=== PATIENT | male | born 1935 | race Caucasian/White ===

== ENCOUNTER 2016-06-21 15:11 | Observation (INO) | payer BC, MEDICARE, OTHER ==
--- NOTE | ~2016-06-21 | HP ---
History And Physical [place] [id number] [facility] [place] [address] NAME: ARIELLA ARNOLD : 37 STATUS : ADM Rachael PAT#: [id number] AGE: 81 ADM/REG DATE : 06/21/16 MR#: [id number] REPORT SERV DATE: 06/21/16 DICTATED BY: FEDERICO MARQUEZ DATE: 06/21/16 REPORT STATUS : Draft TRANSCRIBED BY: MODL DATE: 06/21/16 DATE OF ADMISSION: 06/21/2016 POINT OF ENTRY: [facility] Emergency Department. CHIEF COMPLAINT: Weakness and difficulties walking. HISTORY OF PRESENT ILLNESS: Mr. Arnold is a 81-year-old gentleman with a history of coronary artery disease with prior coronary artery bypass grafting as well as hypertension, hyperlipidemia, zgk-odqfqzh-vvednywjx diabetes mellitus type 2, as well as chronic systolic congestive heart failure, most recent ejection fraction being 50% who presents to the emergency department today with reports of weakness, dizziness, and difficulties walking. The patient states he was recently admitted to [facility] in May for a fall down some steps. He denies any fractures or dislocations, but was admitted there for four days for unclear reasons. The patient states that he was having some difficulties walking even prior to that fall, but since then has had continued difficulties walking and feeling unsteady on his feet. He primarily presents to the emergency department today for reports of feeling tremulous, weak, as well as dizzy with ambulation. He denies any recent fevers, night sweats, chills, chest pain, palpitations, shortness of breath, cough, sputum production, abdominal pain, nausea, vomiting, diarrhea, constipation, dysuria, lower extremity edema, melena, hematochezia, hemoptysis, or hematemesis. REVIEW OF SYSTEMS: Comprehensive review of systems, otherwise, negative unless listed in the history of present illness. Initial evaluation in the emergency department is notable for a blood pressure initially of 99/53, with small amount of IV fluid, it improved to one teens over 60s. Labs notable for a creatinine 1.31 as well as positive urinary tract infection. He was noted to be anemic with hemoglobin of 9.6 with most recent comparison being 12.6, a few months prior, but the occult stool was negative. He was subsequently admitted to the Hospital Service for further evaluation and management. PREVIOUS MEDICAL HISTORY: 1. Coronary artery disease with prior coronary artery bypass grafting. 2. COPD, not on home oxygen. 3. Hypertension. 4. Hyperlipidemia. 5. Gout. 6. Cfw-etkhjqq-hbfutvvar diabetes mellitus type 2. 7. Atrial fibrillation, on Coumadin. 8. Chronic systolic congestive heart failure, ejection fraction 50%. 9. BPH. 10.Osteoarthritis. History And Physical [address] [place]. [address] NAME: ARIELLA ARNOLD : 37 STATUS : ADM Rachael PAT#: [id number] AGE: 81 ADM/REG DATE : 06/21/16 MR#: [id number] REPORT SERV DATE: 06/21/16 DICTATED BY: FEDERICO MARQUEZ DATE: 06/21/16 REPORT STATUS : Draft TRANSCRIBED BY: JUANJO DATE: 06/21/16 PAST SURGICAL HISTORY: 1. Coronary artery bypass grafting. 2. Cataract surgery. 3. Right total hip. 4. Cholecystectomy. 5. Appendectomy of the left wrist. 6. Aortic valve replacement for mitral valve repair. 7. Prostate surgery. ALLERGIES: NO KNOWN DRUG ALLERGIES. HOME MEDICATIONS: Home medications are pending at the time of dictation. SOCIAL HISTORY: He is a former smoker. Denies any alcohol. Denies illicits. He is , currently lives with his . FAMILY MEDICAL HISTORY: Mother with history of stroke. Father with COPD, long-term smoker. Siblings also with stroke. LABS AND IMAGIN. White count is 7.3, hemoglobin is 9.6, hematocrit is 29.0, and platelet count is 191. 2. Sodium is 139, potassium 3.5, chloride 101, carbon dioxide 29, BUN 17, creatinine 1.31, glucose is 132, calcium is 8.5, protein is 6.3, albumin is 3.4, bilirubin is 0.7, ALT is 10, AST 14, and alkaline phosphatase is 91. 3. Lactic acid is 1.5. 4. Urinalysis: Specific gravity is 1.017, trace leukocyte esterase, and 17 white blood cells per high-powered field. 5. Chest x-ray per my review shows no acute cardiopulmonary abnormality, does show some hyperinflation consistent with COPD. 6. [facility] review of [facility], he has echocardiogram from January 2016 shows ejection fraction of 50% as well as some mild diastolic dysfunction as well as some moderate RV systolic dysfunction. PHYSICAL EXAMINATION: VITAL SIGNS: Temperature is 98.2 degrees Fahrenheit; pulse is 89; respirations 16; saturating 97% on room air; blood pressure 99/53, on recheck, blood pressure is now 113/67; and pulse is 71. GENERAL: The patient is awake, alert, in no acute distress, and resting comfortably I bed. He is a well-developed, well-nourished, elderly male. HEENT: Atraumatic and normocephalic. Moist mucous membranes. Pupils are equal, round, and reactive to light and accommodation. Extraocular eye movements are intact. No scleral icterus. NECK: No jugular venous distention. No carotid bruits. CARDIAC: Irregularly irregular rate and rhythm with a 2/6 systolic murmur, heard best over the left lower sternal border. LUNGS: Clear to auscultation bilaterally. No wheezes, rhonchi, or crackles. History And Physical [address] [address] NAME: ARIELLA ARNOLD : 37 STATUS : ADM Rachael PAT#: [id number] AGE: 81 ADM/REG DATE : 06/21/16 MR#: [id number] REPORT SERV DATE: 06/21/16 DICTATED BY: FEDERICO MARQUEZ DATE: 06/21/16 REPORT STATUS : Draft TRANSCRIBED BY: JUANJO DATE: 06/21/16 ABDOMEN: Soft, nontender, and nondistended. Good bowel sounds. No rebound, guarding, or rigidity. EXTREMITIES: Warm and well perfused. No cyanosis, clubbing, or edema. SKIN: Warm and dry. PSYCH: Affect appropriate. NEURO: Alert and oriented x3. Cranial nerves II through XII are grossly intact. Speech is normal. Gait not assessed. Does have approximately 4+/5 strength in bilateral lower extremities. ASSESSMENT AND PLAN: Mr. Arnold is a 81-year-old gentleman who presents with vague complaints of weakness, dizziness, and difficulties walking and instantly found to have some hypotension which resolved with fluids as well as urinary tract infection. PROBLEM LIST: 1. Urinary tract infection. 2. Renal insufficiency and dehydration. 3. Weakness. 4. Hypotension, now resolved. 5. Acute on chronic anemia. 6. Permanent atrial fibrillation, on Coumadin. 7. Weakness and dizziness. 8. Chronic systolic congestive heart failure. PLAN: 1. Urinary tract infection. We will place the patient on IV Rocephin, follow up urine cultures. 2. Renal insufficiency and dehydration. Provide some gentle IV fluid hydration. Holding the patient's Lasix at least overnight. We will recheck in the morning. 3. Hypotension, now resolved. The patient's blood pressures have improved with gentle IV fluid hydration. We will hold the patient's diuretics as well as blood pressure medications overnight. Gentle IV fluid hydration. Re-evaluate in the morning. 4. Weakness and dizziness, likely multifactorial from UTI, low blood pressure, as well as some renal insufficiency. We will check orthostatic vital signs as well as holding his blood pressure medications, IV fluid hydration. 5. Acute on chronic anemia. Occult stool was negative. We will check iron studies, folate, and B12. 6. Paroxysmal atrial fibrillation, on Coumadin. Checking INR level, this was not done in the ER. 7. Chronic systolic congestive heart failure. The patient currently appears euvolemic at this time. We will hold Lasix overnight, provide very gentle IV hydration given the reduced LV function. 8. DVT prophylaxis. The patient is on Coumadin. 9. Code status. The patient wishes to be full code. JCB/MODL History And Physical [address] [place]. [address] NAME: ARIELLA ARNOLD : 37 STATUS : ADM Rachael PAT#: [id number] AGE: 81 ADM/REG DATE : 06/21/16 MR#: [id number] REPORT SERV DATE: 06/21/16 DICTATED BY: FEDERICO MARQUEZ DATE: 06/21/16 REPORT STATUS : Draft TRANSCRIBED BY: JUANJO DATE: 06/21/16 Federico Marquez MD / [id number] CC: Duke Barlow M.D.
--- NOTE | ~2016-06-21 | DS ---
Discharge Summary [facility] [address] [place]. [address] NAME: ARIELLA ARNOLD : 37 STATUS : DIS Rachael PAT#: [id number] AGE: 81 ADM/REG DATE : 06/21/16 MR#: [id number] REPORT SERV DATE: 06/23/16 DICTATED BY: ALETHEA REYNAGA DATE: 06/23/16 REPORT STATUS : Draft TRANSCRIBED BY: MODEmely DATE: 06/23/16 ADMISSION DATE: 06/21/2016 DISCHARGE DATE: 06/23/2016 PRINCIPAL DIAGNOSIS: Generalized weakness, due to severe malnutrition and 60 pounds weight loss over the past year. SECONDARY DIAGNOSES: Urinary tract infection, dehydration with hypovolemia, and orthostatic hypotension, history of atrial fibrillation, iron deficiency anemia, not otherwise specified. HISTORY OF PRESENT ILLNESS: Please see Dr. Serrano's dictation on 06/21/2016. HOSPITAL COURSE: Admitted with generalized weakness with increasingly frequent falls. The patient was referred to Physical Therapy, but actually did fairly well after he finally ate. The patient had lost 60 pounds over the past year. He attributes this to loss of his teeth, however, there was certainly a concern about occult malignancy. The patient did not have a bowel movement. He was found to be iron deficient. He had a colonoscopy six years ago. He was recommended to have a repeat one at the earliest possible opportunity. He was taken off warfarin, given intravenous iron prior to discharge, but most importantly, he was begun on Remeron therapy and dietary supplements which he apparently tolerated well and was agreeable to continuing. He was taken off metformin, taken off furosemide, taken off Coumadin, as previously mentioned the Remeron is began 15 mg at bedtime, to increase to 30 mg at bedtime after a week. He would also would hold aspirin until following up with Dr. Thompson. He will follow up with Dr. Duke Barlow in one to two weeks. He was also withdrawn from his antihypertensive therapy since his blood pressure had been low, the Lasix obviously because of the hypovolemia. He was not found to have any decompensated heart disease. RUI/JUANJO Alethea Reynaga M.D. / [id number] CC: Danya Wilson M.D. Vijaykurmar Patel, M.D.
[~2016-06-21 15:11] MED LIST: ASAB PO; BETAP120 PO; BETAPACE80 PO; C5; CYANO1000T PO; DIABETA5 PO; DSS PO; DURICEF PO; FERROUS SULF325 M1 PO; FESO4 PO; GLUCPH PO; JANTOVEN1 MG PO; JANTOVEN3 MG PO; JANTOVEN5 MG PO; JANTOVEN7.5 MG PO; Jantoven PO; KDUR20 PO; KLOR-CON M2020 MEQ PO; L40 PO; LISINOPRIL PO; LOP25 PO; LOP50 PO; OXYCOD PO; PRAV10 PO; PRILOSEC40 MG PO; PRIN20 PO; PRIN5 PO; SUCR PO; VISINE0.05 % OPH; Z100 PO; ZESTRIL2.5 MG PO
[2016-06-21 15:37] LABS: BASOPHILS 0.4 %; BASOPHILS ABSOLUTE 0.03 10/3/uL (0.0-0.16); EOSINOPHILS 0.4 %; EOSINOPHILS ABSOLUTE 0.03 10/3/uL (0.0-0.53); IMMATURE GRANULOCYTES 0.3 %; IMMATURE GRANULOCYTES ABSOLUTE 0.02 10/3/uL (0.0-0.11); LYMPHOCYTES 12.1 %; LYMPHOCYTES ABSOLUTE 0.88 10/3/uL (0.67-4.30); MEAN CORPUS HGB CONC 33.1 g/dL (32.0-36.0); MEAN CORPUSCULAR HEMOGLOB 30.8 pg (26.0-34.0); MEAN CORPUSCULAR VOLUME 92.9 fL (80-100); MEAN PLATELET VOLUME 9.1 fL (9.2-13.0); MONOCYTES 11.6 %; MONOCYTES ABSOLUTE 0.84 10/3/uL (0.21-1.20); NEUTROPHILS 75.2 %; NEUTROPHILS ABSOLUTE 5.46 10/3/uL (2.02-8.40); PLATELET COUNT 191 10/3/uL (150-400); RED CELL COUNT 3.12 10/6/uL (4.7-6.1)
[2016-06-21 15:39] LABS: ER CBC TAT 0 Hrs 05 Mins; HEMOGLOBIN 9.6 g/dL (13.6-17.8); MANUAL DIFF NO %; WHITE BLOOD CELLS 7.3 10/3/uL (4.5-10.5)
[2016-06-21 15:54] LABS: A/G RATIO 1.2 (0.7-1.9); ALBUMIN 3.4 G/DL (3.5-5.0); ALKALINE PHOSPHATASE 91 U/L (45-117); BUN (BLOOD UREA NITROGEN) 17 MG/DL (6-23); CALCIUM, SERUM 8.5 MG/DL (8.5-10.4); CHLORIDE, SERUM 101 MMOL/L (96-112); CO2 (CARBON DIOXIDE) 29 MMOL/L (24-34); CREATININE 1.31 MG/DL (0.70-1.30); GFR AFRICAN AMERICAN 60 ML/MIN (>=60); GFR NON AFRICAN AMERICAN 51 ML/MIN (>=60); GLOBULIN 2.9 G/DL (2.5-4.1); GLUCOSE, SERUM 132 MG/DL (60-99); POTASSIUM, SERUM 3.5 MMOL/L (3.5-5.3); SGOT(AST) 14 U/L (5-40); SGPT(ALT) 10 U/L (5-65); SODIUM, SERUM 139 MMOL/L (135-148); TOTAL BILIRUBIN 0.7 MG/DL (0-1.2); TOTAL PROTEIN 6.3 G/DL (6.0-8.5)
[2016-06-21 16:01] LABS: ASCORBIC ACID (UR NOT ORDER) NEG (NEG); BILIRUBIN, URINE NEGATIVE (NEG); ER URINALYSIS TAT 0 Hrs 14 Mins; KETONE, URINE NEGATIVE (NEG); LEUKOCYTE ESTERASE(NOT OR TRACE (NEG); NITRITE (URINE) NEG (NEG); WBC (NOT ORDERED) (RFLEX) 17 (0-5)
[2016-06-21] MEDS ORDERED: L20 PO (20:03)
[2016-06-21] MEDS ORDERED: ZESTRIL5 MG PO (20:03)
[2016-06-21] MEDS ORDERED: KLOR-CON 1010 MEQ PO (20:03)
[2016-06-21] MEDS ORDERED: JANTOVEN6 MG PO (20:04)
[2016-06-21] MEDS ORDERED: PRAV10 PO (20:04)
[2016-06-21] MEDS ORDERED: ASAB PO (20:05)
[2016-06-21] MEDS ORDERED: FERROUS SULF325 M1 PO (20:05)
[2016-06-21] MEDS ORDERED: GLUCPH PO (20:05)
[2016-06-21] MEDS ORDERED: DSS PO (20:06)
[2016-06-21] MEDS ORDERED: CYANO1000T PO (20:07)
[2016-06-21] MEDS ORDERED: *UNABLE3 (20:07)
[2016-06-21 21:48] LABS: PARTIAL THROMBO TIME 45.5 SEC (22.5-37.2)
[2016-06-21 21:56] LABS: TROPONIN I 0.03 NG/ML (<0.05)
[2016-06-21 21:58] LABS: B NATRIURETIC PEPTIDE (BNP) 429.4 PG/ML (< 100.0)
[2016-06-21 22:11] LABS: INTERNATIONAL NORMAL RATI 2.7 UNITS (-)
[2016-06-21 22:12] LABS: PROTIME (NOT ORD) 28.3 SEC (12.0-14.5)
[2016-06-21 22:44] LABS: FREE T4 0.94 NG/DL (0.76-1.46); ULTRASENSITIVE TSH 1.8 MCIU/ML (0.358-3.740)
[2016-06-22 03:47] LABS: BASOPHILS 0.8 %; BASOPHILS ABSOLUTE 0.05 10/3/uL (0.0-0.16); EOSINOPHILS 1.1 %; EOSINOPHILS ABSOLUTE 0.07 10/3/uL (0.0-0.53); HEMATOCRIT 29.5 % (40.0-51.0); HEMOGLOBIN 9.7 g/dL (13.6-17.8); IMMATURE GRANULOCYTES 0.3 %; IMMATURE GRANULOCYTES ABSOLUTE 0.02 10/3/uL (0.0-0.11); LYMPHOCYTES 13.4 %; LYMPHOCYTES ABSOLUTE 0.87 10/3/uL (0.67-4.30); MANUAL DIFF NO %; MEAN CORPUS HGB CONC 32.9 g/dL (32.0-36.0); MEAN CORPUSCULAR HEMOGLOB 30.8 pg (26.0-34.0); MEAN CORPUSCULAR VOLUME 93.7 fL (80-100); MEAN PLATELET VOLUME 9.1 fL (9.2-13.0); MONOCYTES 11.9 %; MONOCYTES ABSOLUTE 0.77 10/3/uL (0.21-1.20); NEUTROPHILS 72.5 %; PLATELET COUNT 161 10/3/uL (150-400); RBC DISTRIBUTION WIDTH 15.8 % (12.0-16.0); RED CELL COUNT 3.15 10/6/uL (4.7-6.1); WHITE BLOOD CELLS 6.5 10/3/uL (4.5-10.5)
[2016-06-22 04:03] LABS: BUN (BLOOD UREA NITROGEN) 16 MG/DL (6-23); CALCIUM, SERUM 8.3 MG/DL (8.5-10.4); CHLORIDE, SERUM 106 MMOL/L (96-112); CO2 (CARBON DIOXIDE) 26 MMOL/L (24-34); CREATININE 1.15 MG/DL (0.70-1.30); GFR AFRICAN AMERICAN 70 ML/MIN (>=60); GFR NON AFRICAN AMERICAN 60 ML/MIN (>=60); GLUCOSE, SERUM 148 MG/DL (60-99); SODIUM, SERUM 141 MMOL/L (135-148)
[2016-06-22] MEDS ORDERED: Z100 PO (11:58)
[2016-06-23 04:04] LABS: RETICULOCYTE COUNT 1.4 % (0.5-2.5); RETICULOCYTE COUNT ABSOLUTE 45.9 10/3/uL (20.2-119.8)
[2016-06-23 04:10] LABS: INTERNATIONAL NORMAL RATI 2.1 UNITS (-)
[2016-06-23 04:13] LABS: PROTIME (NOT ORD) 23.2 SEC (12.0-14.5)
[2016-06-23 04:23] LABS: % IRON SAT 6 % (20-50); ALKALINE PHOSPHATASE 85 U/L (45-117); BUN (BLOOD UREA NITROGEN) 19 MG/DL (6-23); CALCIUM, SERUM 8.7 MG/DL (8.5-10.4); CHLORIDE, SERUM 104 MMOL/L (96-112); CO2 (CARBON DIOXIDE) 27 MMOL/L (24-34); GFR AFRICAN AMERICAN 74 ML/MIN (>=60); GFR NON AFRICAN AMERICAN 64 ML/MIN (>=60); GLUCOSE, SERUM 121 MG/DL (60-99); IRON BINDING CAPACITY 247 MCG/DL (250-450); IRON, SERUM 16 MCG/DL (35-150); PHOSPHORUS, SERUM 2.4 MG/DL (2.5-4.5); POTASSIUM, SERUM 3.9 MMOL/L (3.5-5.3); SGOT(AST) 14 U/L (5-40); SGPT(ALT) 11 U/L (5-65); SODIUM, SERUM 141 MMOL/L (135-148); TOTAL BILIRUBIN 0.9 MG/DL (0-1.2)
[2016-06-23 04:44] LABS: CA-19-9 5.6 U/ML (< 37.0)
[2016-06-23 04:46] LABS: CEA 2.1 NG/ML
[2016-06-23] MEDS ORDERED: CEFT5 PO (11:44)
[2016-06-23] MEDS ORDERED: REM15 PO (11:44)
[2016-07-06] MEDS ORDERED: PRIN5 PO (15:32)
[2016-07-06] MEDS ORDERED: L40 PO (15:32)
[2016-07-06] MEDS ORDERED: KLOR-CON M2020 MEQ PO (15:33)
[2016-07-06] MEDS ORDERED: GLUCPH PO (15:33)
[2016-07-06] MEDS ORDERED: OTC IRON PO (15:33)
== END 2016-06-23 15:29 | disposition home or self-care (01) ==
LOC: ER 15:11 → CDU1 19:48
PROVIDERS: Hospitalist; Internal Medicine
DX: R53.1 Weakness (principal); E46 Unspecified protein-calorie malnutrition; Z68.1 Body mass index [BMI] 19.9 or less, adult; N39.0 Urinary tract infection, site not specified; I48.91 Unspecified atrial fibrillation; D50.9 Iron deficiency anemia, unspecified; I25.10 Atherosclerotic heart disease of native coronary artery without angina pectoris; J44.9 Chronic obstructive pulmonary disease, unspecified; E11.9 Type 2 diabetes mellitus without complications; I11.0 Hypertensive heart disease with heart failure; I50.22 Chronic systolic (congestive) heart failure; N40.0 Benign prostatic hyperplasia without lower urinary tract symptoms; M19.90 Unspecified osteoarthritis, unspecified site
CPT/HCPCS: 71020; 80048; 80053; 81001; 82378; 82607; 82728; 82746; 82962; 83036; 83540; 83550; 83605; 83735; 83880; 84100; 84439; 84443; 84484; 85025; 85045; 85610; 85730; 86301; 87040; 93005; 93970; 96374; 96375; 96376; 97162-GP; 99285; A9270-GY; G0378; G8978-CI-GP; G8979-CH-GP; J1750

== ENCOUNTER 2016-07-10 09:46 | Day surgery (SDC) | payer BC, MEDICARE, OTHER ==
--- NOTE | ~2016-07-10 | EGD ---
EGD REPORT [facility] [address] [place]. [address] NAME: ARIELLA ARNOLD : 37 STATUS : REG [facility] PAT#: [id number] AGE: 81 ADM/REG DATE : 07/10/16 MR#: [id number] REPORT SERV DATE: 07/10/16 DICTATED BY: SALENA HALE DATE: 07/10/16 REPORT STATUS : Draft [facility] DATE: 07/10/16 Endoscopy Center Patient Name: Ariella Arnold Date of : 1935 Attending MD: WANG HALE MD Procedure Date No Time: 07/10/2016 Procedure: Upper GI endoscopy Indications: Iron deficiency anemia Referring MD: HARRISON MCGUIRE MD Medicines: See the Anesthesia note for documentation of the administered medications Complications: No immediate complications. Estimated blood loss: Minimal. Procedure: Pre-Anesthesia Assessment: - Prior to the procedure, a History and Physical was performed, and patient medications and allergies were reviewed. The patient's tolerance of previous anesthesia was also reviewed. The risks and benefits of the procedure and the sedation options and risks were discussed with the patient. All questions were answered, and informed consent was obtained. Prior Anticoagulants: The patient has taken aspirin, last dose was 1 day prior to procedure. ASA Grade Assessment: IV - A patient with severe systemic disease that is a constant threat to life. After reviewing the risks and benefits, the patient was deemed in satisfactory condition to undergo the procedure. After obtaining informed consent, the endoscope was passed under direct vision. Throughout the procedure, the patient's blood pressure, pulse, and oxygen saturations were monitored continuously. The GIF [id number] was introduced through the mouth, and advanced to the second part of duodenum. The upper GI endoscopy was accomplished without difficulty. The patient tolerated the procedure well. The upper GI endoscopy was accomplished without difficulty. The patient tolerated the procedure well. Findings: The examined duodenum was normal. Biopsies were taken with a cold forceps for histology. A single 30 mm pedunculated polyp with no bleeding and no stigmata of recent bleeding was found in the cardia. Area was successfully injected with 5 mL of a 1:10,000 solution of epinephrine for drug delivery. Two ligatures were successfully placed. This was done to prevent bleeding. EGD REPORT [place] [id number] [facility] [place]. [address] NAME: ARIELLA ARNOLD : 37 STATUS : REG [facility]#: [id number] AGE: 81 ADM/REG DATE : 07/10/16 MR#: [id number] REPORT SERV DATE: 07/10/16 DICTATED BY: SALENA HALE DATE: 07/10/16 REPORT STATUS : Draft [facility]: [facility] DATE: 07/10/16 The polyp was removed with a hot snare. Resection and retrieval were complete. With a Weldon net Area was successfully injected with 4 mL of a 1:10,000 solution of epinephrine for drug delivery. 5 cc epi injected befpre polypectomy and 4 cc epi injected after polypectomy Coagulation for bleeding prevention using gold probe was successful. Three small sessile polyps with no stigmata of recent bleeding were found in the stomach. These polyps were removed with a cold snare. Resection and retrieval were complete. The examined esophagus was normal. Impression: - Normal examined duodenum. Biopsied. - A single gastric polyp. Resected and retrieved. Injected. Ligated. Treated with thermal therapy. - Three gastric polyps. Resected and retrieved. - Normal esophagus. Recommendation: - Patient has a contact number available for emergencies. The signs and symptoms of potential delayed complications were discussed with the patient. Return to normal activities tomorrow. Written discharge instructions were provided to the patient. - Regular diet. - Discharge patient to home. - Continue present medications. - Await pathology results. - If you have ant chest pain, abdominal pain, bleeding or fever or chills please call offive at [phone] or after hours call my answering service at [phone]. If you cannot get hold of us please proceed to the [facility] emergency room Procedure Code(s): --- Professional --- 00155, Esophagogastroduodenoscopy, flexible, transoral; with removal of tumor(s), polyp(s), or other lesion(s) by snare technique Diagnosis Code(s): --- Professional --- K31.7, Polyp of stomach and duodenum D50.9, Iron deficiency anemia, unspecified CPT copyright 2013 [employer]. All rights reserved. The codes documented in this report are preliminary and upon automotive lube technician review may be revised to meet current compliance requirements. EGD REPORT [facility] [address] [place]. [address] NAME: ARIELLA ARNOLD : 37 STATUS : REG [facility] PAT#: [id number] AGE: 81 ADM/REG DATE : 07/10/16 MR#: [id number] REPORT SERV DATE: 07/10/16 DICTATED BY: SALENA HALE DATE: 07/10/16 REPORT STATUS : Draft TRANSCRIBED BY: [employer] DATE: 07/10/16 WANG HALE MD 07/10/2016 1:17 PM This report has been signed electronically. Number of Addenda: 0 Note Initiated On: 07/10/2016 12:06 PM Scope Withdrawal Time 0 hours 0 minutes 0 seconds [address] [place] [address]
--- NOTE | ~2016-07-10 | EGD ---
EGD REPORT [facility] [address] [place]. [address] NAME: ARIELLA ARNOLD : 39 STATUS : [place] [facility] [place]#: [id number] AGE: 81 ADM/REG DATE : 07/10/16 MR#: [id number] REPORT SERV DATE: 07/10/16 DICTATED BY: SALENA HALE DATE: 07/10/16 REPORT STATUS : Draft [facility]ANSCRIBED [facility]: [facility] DATE: 07/10/16 Endoscopy Center Patient Name: Ariella Arnold Date of : 1935 Attending MD: WANG HALE MD Procedure Date No Time: 07/10/2016 Procedure: Colonoscopy Indications: Iron deficiency anemia Referring MD: HARRISON MCGUIRE MD Medicines: See the Anesthesia note for documentation of the administered medications Complications: No immediate complications. Estimated blood loss: None. Procedure: After I obtained informed consent, the scope was passed under direct vision. Throughout the procedure, the patient's blood pressure, pulse, and oxygen saturations were monitored continuously. The PCF H190L [id number] was introduced through the anus and advanced to the terminal ileum. The ileocecal valve, appendiceal orifice, terminal ileum and rectum were photographed. The entire colon was examined. The colonoscopy was performed without difficulty. The patient tolerated the procedure well. The quality of the bowel preparation was adequate. Findings: The terminal ileum appeared normal. A sessile polyp was found in the proximal ascending colon. The polyp was 8 mm in size. The polyp was removed with a cold snare. Resection and retrieval were complete. Non-bleeding internal hemorrhoids were found during retroflexion and were Grade I (internal hemorrhoids that do not prolapse). No other significant abnormalities were identified in a careful examination of the remainder of the colon. Impression: - The examined portion of the ileum was normal. - One 8 mm polyp in the proximal ascending colon. Resected and retrieved. - Non-bleeding internal hemorrhoids. Recommendation: - Patient has a contact number available for emergencies. The signs and symptoms of potential delayed complications were discussed with the patient. Return to normal activities tomorrow. Written discharge instructions were provided to the patient. - Regular diet. - Discharge patient to home. EGD REPORT [id number] [place]. [address] NAME: ARIELLA ARNOLD : 39 STATUS : REG [facility]#: [id number] AGE: 81 ADM/REG DATE : 07/10/16 MR#: [id number] REPORT SERV DATE: 07/10/16 DICTATED BY: SALENA HALE DATE: 07/10/16 REPORT STATUS : Draft TRANSCRIBED BY: [employer] DATE: 07/10/16 - Continue present medications. - Await pathology results. - Repeat colonoscopy is not recommended for surveillance. - If you have ant chest pain, abdominal pain, bleeding or fever or chills please call offive at [phone] or after hours call my answering service at [phone]. If you cannot get hold of us please proceed to the [facility] emergency room Procedure Code(s): --- Professional --- 98467, Colonoscopy, flexible, proximal to splenic flexure; with removal of tumor(s), polyp(s), or other lesion(s) by snare technique Diagnosis Code(s): --- Professional --- K64.0, First degree hemorrhoids D12.2, Benign neoplasm of ascending colon D50.9, Iron deficiency anemia, unspecified CPT copyright 2013 [employer]. All rights reserved. The codes documented in this report are preliminary and upon huc review may be revised to meet current compliance requirements. WANG HALE MD 07/10/2016 1:23 PM This report has been signed electronically. Number of Addenda: 0 Note Initiated On: 07/10/2016 12:05 PM Scope Withdrawal Time 0 hours 7 minutes 18 seconds [id number] [place] [address]
[~2016-07-10 09:46] MED LIST changes: +*UNABLE3; +CEFT5 PO; +JANTOVEN6 MG PO; +KLOR-CON 1010 MEQ PO; +L20 PO; +OTC IRON PO; +REM15 PO; +ZESTRIL5 MG PO
[2016-07-10] MEDS ORDERED: L40 PO (20:23)
[2016-07-10] MEDS ORDERED: KDUR20 PO (20:23)
== END 2016-07-10 23:59 | disposition home health service (06) ==
LOC: DMU 09:46
PROVIDERS: Internal Medicine Gastroenterology
PROC: 0DBK8ZZ Excision of Ascending Colon, Via Natural or Artificial Opening Endoscopic (ICD-10-PCS; 2016-07-10)
PROC: 0DB98ZX Excision of Duodenum, Via Natural or Artificial Opening Endoscopic, Diagnostic (ICD-10-PCS; principal; 2016-07-10 12:00)
PROC: 0DB68ZZ Excision of Stomach, Via Natural or Artificial Opening Endoscopic (ICD-10-PCS; 2016-07-10 12:00)
PROC: 3E0G8GC Introduction of Other Therapeutic Substance into Upper GI, Via Natural or Artificial Opening Endoscopic (ICD-10-PCS; 2016-07-10 12:11)
DX: D12.2 Benign neoplasm of ascending colon (principal); K31.7 Polyp of stomach and duodenum; K29.50 Unspecified chronic gastritis without bleeding; K64.0 First degree hemorrhoids; I25.2 Old myocardial infarction; I25.10 Atherosclerotic heart disease of native coronary artery without angina pectoris; Z95.1 Presence of aortocoronary bypass graft; D50.9 Iron deficiency anemia, unspecified; I50.9 Heart failure, unspecified; I11.0 Hypertensive heart disease with heart failure; I48.91 Unspecified atrial fibrillation; E78.00 Pure hypercholesterolemia, unspecified; M19.90 Unspecified osteoarthritis, unspecified site; E11.9 Type 2 diabetes mellitus without complications; G62.9 Polyneuropathy, unspecified
CPT/HCPCS: 82962; C9113; J2405

== ENCOUNTER 2016-07-10 19:04 | Inpatient (IN) | payer BC, MEDICARE ==
--- NOTE | ~2016-07-10 | DS ---
Discharge Summary [facility] [address] [facility] [place]. [address] NAME: ARIELLA ARNOLD : 37 STATUS : DIS IN PAT#: [id number] AGE: 81 ADM/REG DATE : 07/10/16 MR#: [id number] REPORT SERV DATE: 07/15/16 DICTATED BY: AMANDO BOSE DATE: 07/14/16 REPORT STATUS : Draft TRANSCRIBED BY: MODL DATE: 07/14/16 ADMISSION DATE: 07/10/2016 DISCHARGE DATE: 07/14/2016 DISCHARGE DIAGNOSES: 1. Postpolypectomy bleed, upper gastrointestinal bleed. 2. Acute blood loss anemia, requiring two packed RBCs. 3. Diabetes type 2. 4. Chronic atrial fibrillation. 5. Coronary artery disease. CONSULTS: Gastroenterology. PROCEDURES: EGD performed 07/11/2016 revealed a very large clot within cardia of stomach which was injected with 1 x 10,000 epinephrine solution with good blanching. The patient also had a very large visible blood vessel at the proximal end of the blood clot to which Endoclip was placed with excellent coaptation. HOSPITAL COURSE: This is a 81-year-old gentleman who was admitted to the hospital with hematemesis. For details please refer to H and P by Dr. Manny Gonzáles. In summary, the patient was admitted and was started on Protonix drip. The patient was seen by GI the next day and had an upper endoscopy with results as stated above. The patient did require two packs of PRBCs but otherwise the patient remained hemodynamically stable. The patient was in the ICU for the first 2 days of the hospital stay and then he was transferred out in stable condition. The patient remained hemodynamically stable. The patient is now being discharged home with 12-week course of Protonix 40 mg p.o. b.i.d. The patient used to be on Coumadin prior to this episode and Coumadin will be held until further reevaluation as an outpatient. The patient's discharge hemoglobin is 9.5. DISPOSITION: Home. DISCHARGE MEDICATIONS: No changes except for Protonix 40 mg p.o. b.i.d. for 12 weeks. FOLLOWUP: 1. Please follow up with PCP in the next one to two weeks. 2. Please follow up with GI as instructed. Total of 25 minutes spent in coordinating this patient's discharge today. STEPHANIE/JUANJO ando Bose MD / [id number] Discharge Summary [address] [address] NAME: ARIELLA ARNOLD : 37 STATUS : DIS IN PAT#: [id number] AGE: 81 ADM/REG DATE : 07/10/16 MR#: [id number] REPORT SERV DATE: 07/15/16 DICTATED BY: AMANDO BOSE DATE: 07/14/16 REPORT STATUS : Draft TRANSCRIBED BY: JUANJO DATE: 07/14/16 CC: DO Duke Walter M.D.
--- NOTE | ~2016-07-10 | HP ---
History And Physical [id number] [place]. [address] NAME: ARIELLA ARNOLD : 37 STATUS : ADM IN [facility]#: [id number] AGE: 81 ADM/REG DATE : 07/10/16 MR#: [id number] REPORT SERV DATE: 07/10/16 DICTATED BY: MANNY GONZÁLES DATE: 07/10/16 REPORT STATUS : Draft TRANSCRIBED BY: MODEmely DATE: 07/10/16 DATE OF ADMISSION: 07/10/2016 HISTORY OF PRESENT ILLNESS: This is a 81-year-old white male who comes to the hospital after a few episodes of hematemesis as well as hematochezia. He did not have any issues of dizziness, syncope, chest pain, or fall. Earlier that day, he had EGD and colonoscopy by Dr. Thompson. He had removed several gastric polyps from his stomach as well as colon polyps as well. The patient has had a couple of hospitalizations this year with May for pneumonia and May for UTI. The patient denies any current abdominal pain. Hemoglobin dropped from 11.3 on 07/06/2016 to 8.9 today. The rest of the labs are still pending. The patient states that he is feeling much better now. REVIEW OF SYSTEMS: He has had some increase in his leg swelling. He was just recently put back on his diuretic full. No obvious rash, fevers, or chills. He does have some chronic shortness of breath. No tremor or seizure. PAST MEDICAL HISTORY: Coronary artery disease; type 2 diabetes; chronic systolic heart failure; dyslipidemia; COPD; gout; BPH; osteoarthritis; atrial fibrillation, but recently has been off Coumadin. PAST SURGICAL HISTORY: CABG, cataract surgery, right hip surgery, cholecystectomy, appendectomy, aortic valve replacement and mitral valve repair, and prostate surgery. ALLERGIES: NO KNOWN DRUG ALLERGIES. HOME MEDICATIONS: Pending medicine reconciliation. SOCIAL HISTORY: Former smoker. No alcohol or illicit drugs. Currently . FAMILY HISTORY: Mother, stroke. Father, COPD. Sibling, stroke. PHYSICAL EXAMINATION: VITAL SIGNS: Vitals per nursing flow sheet. GENERAL: No acute distress. Alert and oriented. Maintains good eye contact. HEENT: Normocephalic and atraumatic. Throat clear. Dentures present. Pupils are equal. NECK: Trachea midline. HEART: Tachycardic, regular. LUNGS: Clear anteriorly. No wheezes. GI: Soft, nontender, and nondistended. No guarding, rebound, or rigidity. EXTREMITIES: +2 doughy edema bilaterally. NEURO: GCS 15. LABORATORY DATA: CBC is back and reviewed. The rest of the labs are pending. ASSESSMENT AND PLAN: History And Physical [address] [address] NAME: ARIELLA ARNOLD : 37 STATUS : ADM IN PAT#: [id number] AGE: 81 ADM/REG DATE : 07/10/16 MR#: [id number] REPORT SERV DATE: 07/10/16 DICTATED BY: MANNY GONZÁLES DATE: 07/10/16 REPORT STATUS : Draft TRANSCRIBED BY: MODL DATE: 07/10/16 1. Gastrointestinal bleed. 2. Gastric polyps and colon polyps removed today by Dr. Thompson. 3. Acute blood loss anemia. 4. Coronary artery disease, previous coronary artery bypass graft. 5. Type 2 diabetes. 6. Atrial fibrillation. 7. Chronic systolic heart failure. We will send the patient to the ICU. GI is coming to evaluate the patient tonight. Probable scope is pending today. We will schedule H and Hs. Start the patient on Protonix drip. Medicine reconciliation. Gentle hydration. CEP/MODL Manny Gonzáles DO / [id number]
--- NOTE | ~2016-07-10 | CN ---
Consultation Report [facility] [address] [place]. [address] NAME: ARIELLA ARNOLD : 39 STATUS : ADM IN PAT#: [id number] AGE: 81 ADM/REG DATE : 07/10/16 MR#: [id number] REPORT SERV DATE: 07/11/16 DICTATED BY: MANNY PASCUAL DATE: 07/10/16 REPORT STATUS : Draft TRANSCRIBED BY: MODL DATE: 07/10/16 GI CONSULT DATE OF CONSULTATION: 07/10/2016 REASON FOR CONSULTATION: Regarding GI hemorrhage and hematemesis. HISTORY OF PRESENT ILLNESS: This is a 81-year-old man, who underwent EGD and colonoscopy today by Dr. Parviz Thompson for iron deficiency anemia. Colonoscopy was negative except for internal hemorrhoids and a small polyp cold snared in the ascending colon. EGD showed a normal-appearing duodenum which was biopsied, there were few gastric polyps which were removed with cold snare. The esophagus was normal. There is a very large 30 mm polyp located within the cardia of the stomach which was removed with hot snare. It was also injected with epinephrine and cauterized. The patient went home and did well until about 5 p.m. at which point, he had hematemesis, multiple bouts, he was brought to the emergency room via EMS. He has had lynne hematemesis here in the emergency room at least once. He currently has no abdominal pain. No nausea, no active vomiting now. He has had no bowel movements here. He had been on anticoagulation but was taken off both aspirin and Coumadin a couple of weeks ago. MEDICAL HISTORY: Remarkable for CAD status post CABG, COPD, hypertension, hyperlipidemia, gout, diabetes type 2, atrial fibrillation, congestive heart failure EF 50%, BPH, osteoarthritis, cataract surgery, right total hip arthroplasty, cholecystectomy, appendectomy, aortic valve replacement, mitral valve repair, prostate surgery. ALLERGIES: MORPHINE. MEDICATIONS: Lasix and K-Dur. FAMILY HISTORY: Negative for GI malignancy. SOCIAL HISTORY: He is a former smoker. He does not use alcohol. His family is very supporting. REVIEW OF SYSTEMS: A complete review of systems was obtained and negative except that noted in the history of present illness. PHYSICAL EXAMINATION: VITAL SIGNS: Blood pressure 122/46, pulse is 110, temperature 97.4, respirations 20. HEENT: Sclerae anicteric. Pharynx is pink without exudate. NECK: Supple without lymphadenopathy. LUNGS: Clear to auscultation bilaterally. HEART: Regular rate and rhythm. S1, S2 heard without rubs or gallops. Consultation Report [place] [address] [place]. [address] NAME: ARIELLA ARNOLD : 39 STATUS : ADM IN PAT#: [id number] AGE: 81 ADM/REG DATE : 07/10/16 MR#: [id number] REPORT SERV DATE: 07/11/16 DICTATED BY: MANNY PASCUAL DATE: 07/10/16 REPORT STATUS : Draft TRANSCRIBED BY: MODL DATE: 07/10/16 ABDOMEN: Normal bowel sounds. Belly is soft, nontender, nondistended without hepatosplenomegaly. EXTREMITIES: No pedal edema or rash. NEUROLOGIC: Alert and oriented without focal deficit. Muscle exam is nontender. DATA: White blood cell count is 9.7, hematocrit 28 from previous hematocrit July 06 of 35.9, platelets 286. Other lab is not back at this point. IMPRESSION: 1. Gastrointestinal hemorrhage with hematemesis after polypectomy today, likely site is cardia-polypectomy site. 2. Coronary artery disease status post CABG. 3. Congestive heart failure. 4. Atrial fibrillation, not on anticoagulation and currently in normal sinus rhythm. RECOMMENDATIONS: 1. Intravenous fluids and packed red blood cells as needed. Type and cross for 3 units. 2. Protonix. 3. Urgent EGD to follow after he makes it to the ICU. We may need to consider angiography afterwards. Discussed all the above with the family. CC/DAISYL Manny Pascual M.D. / [id number] CC: DO Duke Walter M.D. Vijaykurmar Patel, M.D.
--- NOTE | ~2016-07-10 | EGD ---
EGD REPORT [facility] [address] [place]. [address] NAME: ARIELLA ARNOLD : 39 STATUS : ADM IN PAT#: [id number] AGE: 81 ADM/REG DATE : 07/10/16 MR#: [id number] REPORT SERV DATE: 07/11/16 DICTATED BY: DUKE CONWAY DATE: 07/11/16 REPORT STATUS : Draft [facility]ED [facility]: [facility] DATE: 07/11/16 Endoscopy Center Patient Name: Ariella Arnold Date of : 1935 Attending MD: DUKE CONWYA MD Procedure Date No Time: 07/11/2016 Procedure: Upper GI endoscopy Indications: Hematemesis, Recent gastrointestinal bleeding Referring MD: WANG HALE MD Medicines: Monitored Anesthesia Care Complications: No immediate complications. Estimated blood loss: Minimal. Procedure: Pre-Anesthesia Assessment: - ASA Grade Assessment: III - A patient with severe systemic disease. After obtaining informed consent, the endoscope was passed under direct vision. Throughout the procedure, the patient's blood pressure, pulse, and oxygen saturations were monitored continuously. The GIF H190 [id number] was introduced through the mouth, and advanced to the second part of duodenum. The upper GI endoscopy was accomplished without difficulty. The patient tolerated the procedure well. Findings: The examined esophagus was normal. One non-bleeding cratered gastric ulcer with a visible vessel was found in the cardia. The lesion was 15 mm in largest dimension. One hemostatic clip had previously been placed. An additional clip was successfully placed to assure that there would be no further bleeding. There was no bleeding during, and at the end, of the procedure. Estimated blood loss was minimal. Few non-bleeding cratered gastric ulcers with no stigmata of bleeding were found in the gastric body. The largest lesion was 5 mm in largest dimension. The examined duodenum was normal. The exam was otherwise without abnormality. Impression: - Gastric ulcer containing visible vessel. Clip was placed. - Gastric ulcers with clean base. - The examination was otherwise normal. Recommendation: - Clear liquid diet today. - Give Protonix (pantoprazole): 8 mg/hr IV by continuous EGD REPORT [address] [address] NAME: ARIELLA ARNOLD : 39 STATUS : ADM IN [facility]#: [id number] AGE: 81 ADM/REG DATE : 07/10/16 MR#: [id number] REPORT SERV DATE: 07/11/16 DICTATED BY: DUKE CONWAY DATE: 07/11/16 REPORT STATUS : Draft TRANSCRIBED BY: [employer] DATE: 07/11/16 infusion for 2 days. - Monitor Hbg Q12 hours Procedure Code(s): --- Professional --- 14677, Esophagogastroduodenoscopy, flexible, transoral; with control of bleeding, any method Diagnosis Code(s): --- Professional --- K25.4, Chronic or unspecified gastric ulcer with hemorrhage K25.9, Gastric ulcer, unspecified as acute or chronic, without hemorrhage or perforation K92.0, Hematemesis K92.2, Gastrointestinal hemorrhage, unspecified CPT copyright 2013 [employer]. All rights reserved. The codes documented in this report are preliminary and upon hog tender review may be revised to meet current compliance requirements. Duke Conway MD DUKE CONWAY MD 07/11/2016 9:26 AM This report has been signed electronically. Number of Addenda: 0 Note Initiated On: 07/11/2016 8:36 AM Scope Withdrawal Time 0 hours 0 minutes 0 seconds [id number] [address]
--- NOTE | ~2016-07-10 | OP ---
Record Of Operation [facility] [address] [place]. [address] NAME: ARIELLA ARNOLD : 39 STATUS : ADM IN PAT#: [id number] AGE: 81 ADM/REG DATE : 07/10/16 MR#: [id number] REPORT SERV DATE: 07/11/16 DICTATED BY: MANNY PASCUAL DATE: 07/10/16 REPORT STATUS : Draft TRANSCRIBED BY: MODL DATE: 07/10/16 DATE OF PROCEDURE: 07/10/2016 PROCEDURE: Esophagogastroduodenoscopy with control of bleeding. INDICATIONS: Hematemesis. Polypectomy earlier today within the cardia of the stomach by Dr. Thompson. MEDICATIONS: As per Anesthesia. The patient was intubated prior to the examination for airway protection. CONSENT: Informed consent was obtained from the patient and his family by me prior to the procedure. Risks, benefits, and alternatives were discussed including the risk of bleeding, perforation, infection, reaction to medicine, and cardiopulmonary complications. DESCRIPTION OF PROCEDURE: After the patient was sedated, intubated, placed in his left lateral decubitus position, the standard gastroscope was passed into the mouth and advanced under direct visualization into the second portion of the duodenum without difficulty. The endoscope was withdrawn with careful examination of mucosa throughout the duodenum, entire stomach with gastric retroflexion, and esophagus. The patient tolerated the procedure well. FINDINGS: 1. Normal-appearing duodenum. 2. Normal appearing antrum and body of the stomach except for erosions within the body from polypectomies earlier today. 3. Normal-appearing esophagus. 4. Very large clot noted within the cardia of the stomach extending to near the GE junction. Area was injected with 1:10,000 solution of epinephrine in a submucosal fashion with good blanching. There is a very large visible vessel at the very proximal end of the clot, and Endoclip was placed over the vessel with excellent coaptation. No bleeding at the end of the procedure. RECOMMENDATIONS: 1. Continue Protonix and monitor carefully in the ICU. 2. Repeat EGD tomorrow. CC/JUANJO Manny Pascual M.D. / [id number] CC: Record Of Operation [address] [address] NAME: ARIELLA ARNOLD : 39 STATUS : ADM IN PAT#: [id number] AGE: 81 ADM/REG DATE : 07/10/16 MR#: [id number] REPORT SERV DATE: 07/11/16 DICTATED BY: MANNY PASCUAL DATE: 07/10/16 REPORT STATUS : Draft TRANSCRIBED BY: MODL DATE: 07/10/16 DO Duke Walter M.D.
[2016-07-10 20:14] LABS: BASOPHILS 0.9 %; BASOPHILS ABSOLUTE 0.09 10/3/uL (0.0-0.16); EOSINOPHILS 0.5 %; EOSINOPHILS ABSOLUTE 0.05 10/3/uL (0.0-0.53); IMMATURE GRANULOCYTES 0.5 %; IMMATURE GRANULOCYTES ABSOLUTE 0.05 10/3/uL (0.0-0.11); LYMPHOCYTES 10.8 %; LYMPHOCYTES ABSOLUTE 1.04 10/3/uL (0.67-4.30); MEAN CORPUS HGB CONC 31.8 g/dL (32.0-36.0); MEAN CORPUSCULAR HEMOGLOB 30.8 pg (26.0-34.0); MEAN CORPUSCULAR VOLUME 96.9 fL (80-100); MEAN PLATELET VOLUME 9.8 fL (9.2-13.0); MONOCYTES 7.8 %; MONOCYTES ABSOLUTE 0.75 10/3/uL (0.21-1.20); NEUTROPHILS 79.5 %; NEUTROPHILS ABSOLUTE 7.68 10/3/uL (2.02-8.40); PLATELET COUNT 286 10/3/uL (150-400); RBC DISTRIBUTION WIDTH 20.2 % (12.0-16.0); WHITE BLOOD CELLS 9.7 10/3/uL (4.5-10.5)
[2016-07-10 20:15] LABS: HEMOGLOBIN 8.9 g/dL (13.6-17.8); MANUAL DIFF NO %; RED CELL COUNT 2.89 10/6/uL (4.7-6.1)
[2016-07-10] MEDS ORDERED: KDUR20 PO (20:23)
[2016-07-10] MEDS ORDERED: L40 PO (20:23)
[2016-07-10 20:28] LABS: INTERNATIONAL NORMAL RATI 1.6 UNITS (-); PARTIAL THROMBO TIME 28.8 SEC (22.5-37.2)
[2016-07-10 20:29] LABS: A/G RATIO 1.1 (0.7-1.9); ALBUMIN 2.8 G/DL (3.5-5.0); BUN (BLOOD UREA NITROGEN) 13 MG/DL (6-23); CALCIUM, SERUM 8.4 MG/DL (8.5-10.4); CHLORIDE, SERUM 111 MMOL/L (96-112); CO2 (CARBON DIOXIDE) 24 MMOL/L (24-34); CREATININE 1.01 MG/DL (0.70-1.30); GFR AFRICAN AMERICAN 82 ML/MIN (>=60); GFR NON AFRICAN AMERICAN 70 ML/MIN (>=60); GLOBULIN 2.5 G/DL (2.5-4.1); GLUCOSE, SERUM 181 MG/DL (60-99); POTASSIUM, SERUM 3.9 MMOL/L (3.5-5.3); SGOT(AST) 11 U/L (5-40); SGPT(ALT) 10 U/L (5-65); SODIUM, SERUM 147 MMOL/L (135-148); TOTAL BILIRUBIN 0.8 MG/DL (0-1.2); TOTAL PROTEIN 5.3 G/DL (6.0-8.5)
[2016-07-10 20:30] LABS: ALKALINE PHOSPHATASE 101 U/L (45-117); PROTIME (NOT ORD) 18.8 SEC (12.0-14.5)
[2016-07-11 01:21] LABS: HEMATOCRIT 27.7 % (40.0-51.0); HEMOGLOBIN 8.9 g/dL (13.6-17.8)
[2016-07-11 04:14] LABS: BASOPHILS 0.3 %; BASOPHILS ABSOLUTE 0.03 10/3/uL (0.0-0.16); EOSINOPHILS 0.4 %; EOSINOPHILS ABSOLUTE 0.04 10/3/uL (0.0-0.53); HEMOGLOBIN 8.2 g/dL (13.6-17.8); IMMATURE GRANULOCYTES 0.3 %; IMMATURE GRANULOCYTES ABSOLUTE 0.03 10/3/uL (0.0-0.11); LYMPHOCYTES 12.8 %; LYMPHOCYTES ABSOLUTE 1.15 10/3/uL (0.67-4.30); MEAN CORPUS HGB CONC 32.8 g/dL (32.0-36.0); MEAN CORPUSCULAR HEMOGLOB 30.8 pg (26.0-34.0); MEAN PLATELET VOLUME 9.9 fL (9.2-13.0); MONOCYTES 8.4 %; MONOCYTES ABSOLUTE 0.75 10/3/uL (0.21-1.20); NEUTROPHILS 77.8 %; NEUTROPHILS ABSOLUTE 6.96 10/3/uL (2.02-8.40); PLATELET COUNT 212 10/3/uL (150-400); RBC DISTRIBUTION WIDTH 19.9 % (12.0-16.0); RED CELL COUNT 2.66 10/6/uL (4.7-6.1)
[2016-07-11 04:18] LABS: MANUAL DIFF NO %
[2016-07-11 04:29] LABS: BUN (BLOOD UREA NITROGEN) 13 MG/DL (6-23); CHLORIDE, SERUM 116 MMOL/L (96-112); CO2 (CARBON DIOXIDE) 26 MMOL/L (24-34); CREATININE 0.83 MG/DL (0.70-1.30); GFR AFRICAN AMERICAN 97 ML/MIN (>=60); GFR NON AFRICAN AMERICAN 84 ML/MIN (>=60); GLUCOSE, SERUM 124 MG/DL (60-99); PHOSPHORUS, SERUM 2.9 MG/DL (2.5-4.5); POTASSIUM, SERUM 3.9 MMOL/L (3.5-5.3); SODIUM, SERUM 149 MMOL/L (135-148)
[2016-07-11 13:13] LABS: HEMOGLOBIN 9.7 g/dL (13.6-17.8)
[2016-07-11 13:14] LABS: HEMATOCRIT 30.1 % (40.0-51.0)
[2016-07-11 18:59] LABS: HEMATOCRIT 29.4 % (40.0-51.0); HEMOGLOBIN 9.6 g/dL (13.6-17.8)
[2016-07-12 04:28] LABS: BASOPHILS 1.2 %; BASOPHILS ABSOLUTE 0.07 10/3/uL (0.0-0.16); EOSINOPHILS 4.8 %; EOSINOPHILS ABSOLUTE 0.28 10/3/uL (0.0-0.53); HEMATOCRIT 27.9 % (40.0-51.0); IMMATURE GRANULOCYTES 0.5 %; IMMATURE GRANULOCYTES ABSOLUTE 0.03 10/3/uL (0.0-0.11); LYMPHOCYTES ABSOLUTE 1.11 10/3/uL (0.67-4.30); MEAN CORPUS HGB CONC 32.3 g/dL (32.0-36.0); MEAN CORPUSCULAR HEMOGLOB 29.7 pg (26.0-34.0); MEAN CORPUSCULAR VOLUME 92.1 fL (80-100); MEAN PLATELET VOLUME 9.8 fL (9.2-13.0); MONOCYTES 11.7 %; MONOCYTES ABSOLUTE 0.68 10/3/uL (0.21-1.20); NEUTROPHILS 62.8 %; NEUTROPHILS ABSOLUTE 3.66 10/3/uL (2.02-8.40); PLATELET COUNT 168 10/3/uL (150-400); RBC DISTRIBUTION WIDTH 23.2 % (12.0-16.0); RED CELL COUNT 3.03 10/6/uL (4.7-6.1); WHITE BLOOD CELLS 5.8 10/3/uL (4.5-10.5)
[2016-07-12 04:30] LABS: CALCIUM, SERUM 7.9 MG/DL (8.5-10.4); CHLORIDE, SERUM 114 MMOL/L (96-112); CO2 (CARBON DIOXIDE) 24 MMOL/L (24-34); CREATININE 0.71 MG/DL (0.70-1.30); GFR AFRICAN AMERICAN 103 ML/MIN (>=60); GFR NON AFRICAN AMERICAN 89 ML/MIN (>=60); GLUCOSE, SERUM 129 MG/DL (60-99); MANUAL DIFF NO %; PHOSPHORUS, SERUM 2.3 MG/DL (2.5-4.5); POTASSIUM, SERUM 3.4 MMOL/L (3.5-5.3); SODIUM, SERUM 147 MMOL/L (135-148)
[2016-07-12 04:32] LABS: BUN (BLOOD UREA NITROGEN) 8 MG/DL (6-23)
[2016-07-12 05:15] LABS: PLATELET ESTIMATE ADQ (ADEQUATE)
[2016-07-12 15:33] LABS: HEMATOCRIT 27.9 % (40.0-51.0)
[2016-07-13 05:59] LABS: BASOPHILS 1.2 %; BASOPHILS ABSOLUTE 0.07 10/3/uL (0.0-0.16); EOSINOPHILS 5.3 %; EOSINOPHILS ABSOLUTE 0.32 10/3/uL (0.0-0.53); HEMATOCRIT 29.1 % (40.0-51.0); HEMOGLOBIN 9.4 g/dL (13.6-17.8); IMMATURE GRANULOCYTES 0.5 %; IMMATURE GRANULOCYTES ABSOLUTE 0.03 10/3/uL (0.0-0.11); LYMPHOCYTES 18.6 %; LYMPHOCYTES ABSOLUTE 1.13 10/3/uL (0.67-4.30); MEAN CORPUS HGB CONC 32.3 g/dL (32.0-36.0); MEAN PLATELET VOLUME 9.9 fL (9.2-13.0); MONOCYTES 10.9 %; MONOCYTES ABSOLUTE 0.66 10/3/uL (0.21-1.20); NEUTROPHILS 63.5 %; NEUTROPHILS ABSOLUTE 3.85 10/3/uL (2.02-8.40); PLATELET COUNT 169 10/3/uL (150-400); RBC DISTRIBUTION WIDTH 23.2 % (12.0-16.0); RED CELL COUNT 3.13 10/6/uL (4.7-6.1); WHITE BLOOD CELLS 6.1 10/3/uL (4.5-10.5)
[2016-07-13 06:06] LABS: MANUAL DIFF NO %
[2016-07-13 06:26] LABS: BUN (BLOOD UREA NITROGEN) 9 MG/DL (6-23); CALCIUM, SERUM 8.3 MG/DL (8.5-10.4); CHLORIDE, SERUM 111 MMOL/L (96-112); CO2 (CARBON DIOXIDE) 24 MMOL/L (24-34); GFR AFRICAN AMERICAN 98 ML/MIN (>=60); GFR NON AFRICAN AMERICAN 85 ML/MIN (>=60); GLUCOSE, SERUM 113 MG/DL (60-99); PHOSPHORUS, SERUM 2.4 MG/DL (2.5-4.5); POTASSIUM, SERUM 3.8 MMOL/L (3.5-5.3); SODIUM, SERUM 146 MMOL/L (135-148)
[2016-07-13 06:55] LABS: PLATELET ESTIMATE ADQ (ADEQUATE)
[2016-07-13 06:56] LABS: OVALOCYTES 1+ (3-10/OIF) (0-2/OIF); POIKILOCYTOSIS 1+ (5-10/OIF) (0-5/OIF); POLYCHROMASIA 1+ (2-5/OIF) (0-1/OIF)
[2016-07-13 16:33] LABS: HEMATOCRIT 30.4 % (40.0-51.0); HEMOGLOBIN 9.8 g/dL (13.6-17.8)
[2016-07-14 05:02] LABS: BASOPHILS 1.2 %; BASOPHILS ABSOLUTE 0.08 10/3/uL (0.0-0.16); EOSINOPHILS 3.3 %; EOSINOPHILS ABSOLUTE 0.22 10/3/uL (0.0-0.53); HEMATOCRIT 29.2 % (40.0-51.0); HEMOGLOBIN 9.5 g/dL (13.6-17.8); IMMATURE GRANULOCYTES 0.3 %; IMMATURE GRANULOCYTES ABSOLUTE 0.02 10/3/uL (0.0-0.11); LYMPHOCYTES 17.4 %; LYMPHOCYTES ABSOLUTE 1.17 10/3/uL (0.67-4.30); MEAN CORPUS HGB CONC 32.5 g/dL (32.0-36.0); MEAN CORPUSCULAR HEMOGLOB 30.2 pg (26.0-34.0); MEAN CORPUSCULAR VOLUME 92.7 fL (80-100); MONOCYTES 9.2 %; MONOCYTES ABSOLUTE 0.62 10/3/uL (0.21-1.20); NEUTROPHILS 68.6 %; NEUTROPHILS ABSOLUTE 4.63 10/3/uL (2.02-8.40); PLATELET COUNT 157 10/3/uL (150-400); RBC DISTRIBUTION WIDTH 22.9 % (12.0-16.0); RED CELL COUNT 3.15 10/6/uL (4.7-6.1); WHITE BLOOD CELLS 6.7 10/3/uL (4.5-10.5)
[2016-07-14 05:09] LABS: MANUAL DIFF NO %
[2016-07-14 05:14] LABS: BUN (BLOOD UREA NITROGEN) 9 MG/DL (6-23); CALCIUM, SERUM 8.5 MG/DL (8.5-10.4); CHLORIDE, SERUM 110 MMOL/L (96-112); CO2 (CARBON DIOXIDE) 25 MMOL/L (24-34); CREATININE 0.88 MG/DL (0.70-1.30); GFR AFRICAN AMERICAN 95 ML/MIN (>=60); GFR NON AFRICAN AMERICAN 82 ML/MIN (>=60); GLUCOSE, SERUM 133 MG/DL (60-99); POTASSIUM, SERUM 4.1 MMOL/L (3.5-5.3); SODIUM, SERUM 146 MMOL/L (135-148)
[2016-07-14 06:13] LABS: PLATELET ESTIMATE ADQ (ADEQUATE)
[2016-07-14 06:14] LABS: OVALOCYTES 1+ (3-10/OIF) (0-2/OIF); POLYCHROMASIA 1+ (2-5/OIF) (0-1/OIF)
[2016-07-14] MEDS ORDERED: L20 PO (10:12)
[2016-07-14] MEDS ORDERED: PROTONIX PO (10:13)
== END 2016-07-14 14:13 | disposition home health service (06) | DRG 919 ==
LOC: ER 19:04 → MIC 20:34 → 6NO 07-12 17:47
PROVIDERS: Internal Medicine; Internal Medicine Gastroenterology; Internal Medicine Pulmonary Disease; Specialist
PROC: 0W3P8ZZ Control Bleeding in Gastrointestinal Tract, Via Natural or Artificial Opening Endoscopic (ICD-10-PCS; principal; 2016-07-10)
PROC: 3E0G8GC Introduction of Other Therapeutic Substance into Upper GI, Via Natural or Artificial Opening Endoscopic (ICD-10-PCS; 2016-07-10)
PROC: 0DBK8ZX Excision of Ascending Colon, Via Natural or Artificial Opening Endoscopic, Diagnostic (ICD-10-PCS; 2016-07-10)
PROC: 0DB98ZX Excision of Duodenum, Via Natural or Artificial Opening Endoscopic, Diagnostic (ICD-10-PCS; 2016-07-10)
PROC: 0DB68ZX Excision of Stomach, Via Natural or Artificial Opening Endoscopic, Diagnostic (ICD-10-PCS; 2016-07-10)
PROC: 3E0G8GC Introduction of Other Therapeutic Substance into Upper GI, Via Natural or Artificial Opening Endoscopic (ICD-10-PCS; 2016-07-10)
PROC: 0D568ZZ Destruction of Stomach, Via Natural or Artificial Opening Endoscopic (ICD-10-PCS; 2016-07-10)
PROC: 30233N1 Transfusion of Nonautologous Red Blood Cells into Peripheral Vein, Percutaneous Approach (ICD-10-PCS; 2016-07-11)
PROC: 0W3P8ZZ Control Bleeding in Gastrointestinal Tract, Via Natural or Artificial Opening Endoscopic (ICD-10-PCS; 2016-07-11)
DX: K91.840 Postprocedural hemorrhage of a digestive system organ or structure following a digestive system procedure (principal); K25.4 Chronic or unspecified gastric ulcer with hemorrhage; I48.2 Chronic atrial fibrillation; I11.0 Hypertensive heart disease with heart failure; I50.22 Chronic systolic (congestive) heart failure; D62 Acute posthemorrhagic anemia; J44.9 Chronic obstructive pulmonary disease, unspecified; I25.10 Atherosclerotic heart disease of native coronary artery without angina pectoris; K64.8 Other hemorrhoids; E78.5 Hyperlipidemia, unspecified; E11.9 Type 2 diabetes mellitus without complications; I25.2 Old myocardial infarction; N40.0 Benign prostatic hyperplasia without lower urinary tract symptoms; M10.9 Gout, unspecified; K64.0 First degree hemorrhoids; K29.50 Unspecified chronic gastritis without bleeding; K31.7 Polyp of stomach and duodenum; Z90.49 Acquired absence of other specified parts of digestive tract; Z86.010 Personal history of colon polyps; Z95.5 Presence of coronary angioplasty implant and graft; Z98.890 Other specified postprocedural states; Z95.2 Presence of prosthetic heart valve; Z88.5 Allergy status to narcotic agent; Z79.899 Other long term (current) drug therapy; Z87.891 Personal history of nicotine dependence; Z96.641 Presence of right artificial hip joint; Z95.1 Presence of aortocoronary bypass graft
CPT/HCPCS: 36415; 36430; 80048; 80053; 82962; 83735; 84100; 85014; 85018; 85025; 85610; 85730; 86850; 86900; 86901; 86920; 87641; 88305; 94640; 96365; 96376; 99291; A9270-GY; C9113; J0330; J2370; J2405; J2765; P9016

== ENCOUNTER 2016-09-11 09:40 | Emergency (ER) | payer BC, MEDICARE ==
[~2016-09-11 09:40] MED LIST changes: +PROTONIX PO
[2016-09-11 10:10] LABS: BASOPHILS 0.8 %; BASOPHILS ABSOLUTE 0.05 10/3/uL (0.0-0.16); EOSINOPHILS 2.9 %; EOSINOPHILS ABSOLUTE 0.17 10/3/uL (0.0-0.53); ER CBC TAT 0 Hrs 05 Mins; HEMATOCRIT 38.3 % (40.0-51.0); HEMOGLOBIN 12.5 g/dL (13.6-17.8); IMMATURE GRANULOCYTES 0.2 %; IMMATURE GRANULOCYTES ABSOLUTE 0.01 10/3/uL (0.0-0.11); LYMPHOCYTES 14.7 %; LYMPHOCYTES ABSOLUTE 0.87 10/3/uL (0.67-4.30); MANUAL DIFF NO %; MEAN CORPUS HGB CONC 32.6 g/dL (32.0-36.0); MEAN CORPUSCULAR HEMOGLOB 31.1 pg (26.0-34.0); MEAN CORPUSCULAR VOLUME 95.3 fL (80-100); MEAN PLATELET VOLUME 9.9 fL (9.2-13.0); MONOCYTES 10.8 %; MONOCYTES ABSOLUTE 0.64 10/3/uL (0.21-1.20); NEUTROPHILS 70.6 %; NEUTROPHILS ABSOLUTE 4.19 10/3/uL (2.02-8.40); PLATELET COUNT 166 10/3/uL (150-400); RBC DISTRIBUTION WIDTH 19.1 % (12.0-16.0); RED CELL COUNT 4.02 10/6/uL (4.7-6.1); WHITE BLOOD CELLS 5.9 10/3/uL (4.5-10.5)
[2016-09-11 10:21] LABS: INTERNATIONAL NORMAL RATI 1.5 UNITS (-); PARTIAL THROMBO TIME 31.6 SEC (22.5-37.2); PROTIME (NOT ORD) 17.6 SEC (12.0-14.5)
[2016-09-11 10:26] LABS: A/G RATIO 1.4 (0.7-1.9); ALBUMIN 3.9 G/DL (3.5-5.0); ALKALINE PHOSPHATASE 105 U/L (45-117); BUN (BLOOD UREA NITROGEN) 16 MG/DL (6-23); CALCIUM, SERUM 9.1 MG/DL (8.5-10.4); CHLORIDE, SERUM 107 MMOL/L (96-112); CO2 (CARBON DIOXIDE) 25 MMOL/L (24-34); CREATININE 1.09 MG/DL (0.70-1.30); GFR AFRICAN AMERICAN 74 ML/MIN (>=60); GFR NON AFRICAN AMERICAN 64 ML/MIN (>=60); GLOBULIN 2.7 G/DL (2.5-4.1); GLUCOSE, SERUM 162 MG/DL (60-99); POTASSIUM, SERUM 3.8 MMOL/L (3.5-5.3); SGOT(AST) 17 U/L (5-40); SGPT(ALT) 17 U/L (5-65); SODIUM, SERUM 143 MMOL/L (135-148); TOTAL BILIRUBIN 0.7 MG/DL (0-1.2); TOTAL PROTEIN 6.6 G/DL (6.0-8.5); TROPONIN I 0.04 NG/ML (<0.05)
== END 2016-09-11 12:27 | disposition home or self-care (01) ==
LOC: ER 09:40
PROVIDERS: Emergency Medicine
DX: I50.9 Heart failure, unspecified (principal); I48.91 Unspecified atrial fibrillation; I25.2 Old myocardial infarction; E11.9 Type 2 diabetes mellitus without complications; D64.9 Anemia, unspecified; Z87.891 Personal history of nicotine dependence; Z88.5 Allergy status to narcotic agent; Z79.899 Other long term (current) drug therapy
CPT/HCPCS: 71010; 80053; 83880; 84484; 85025; 85610; 85730; 93005; 96374; 99285